=== PATIENT | female | born 1975 | race Hispanic/Latino ===

== ENCOUNTER 2017-09-18 09:39 | Emergency (ER) | payer BC ==
[2017-09-18 10:21] LABS: Absolute Lymphocytes (CBC) 1.4 K/uL (0.7-4.9); Absolute Monocytes 0.6 K/uL (0.1-1.3); Absolute Neutrophil 5.3 K/uL (1.8-8.0); Basophils % 0.9 % (0-1.3); Eosinophils % 2.1 % (0-4.4); Hematocrit 47.3 % (36.0-45.0); Lymphocytes % 18.7 % (15.3-44.8); MCH 30.2 pg (27.0-35.0); MCV 88.8 fL (80-100); MPV 9.3 fL (7.6-11.3); RBC Red Blood Cell Count 5.33 M/uL (3.86-4.86)
[2017-09-18 10:37] LABS: Urine Blood 3+ (NEG); Urine Glucose NEGATIVE (NEG); Urine Protein 1+ (NEG); Urine Specific Gravity 1.005 (1.005-1.030)
[2017-09-18 10:57] LABS: ALT/SGPT 23 U/L (12-78); AST/SGOT 20 U/L (15-37); Albumin 3.5 g/dL (3.4-5.0); Alkaline Phosphatase 86 U/L (45-117); BUN Blood Urea Nitrogen 9 mg/dL (7-18); Bicarbonate 27 mmol/L (21-32); Bilirubin Direct 0.1 mg/dL (0-0.2); Bilirubin Total 0.5 mg/dL (0.2-1.0); Glucose Level 88 mg/dL (74-106); Lipase 135 U/L (73-393); Potassium 3.3 mmol/L (3.5-5.1); Protein, Total 7.7 g/dL (6.4-8.2); Sodium Level 139 mmol/L (136-145)
--- NOTE | 2017-09-18 11:26 | RAD REPORT ---
EXAM DESCRIPTION: CT - Abdomen Pelvis W Contrast - 09/18/2017 11:08 am CLINICAL HISTORY: Abdominal pain for 2 days, history of diverticulosis, history of remote cholecyste ctomy COMPARISON: CT imaging July 2016 TECHNIQUE: Biphasic, helical CT imaging of the abdomen and pelvis was performed following 100 ml non -ionic IV contrast. No oral contrast was given. All CT scans are performed using dose optimization technique as appropriate and may include automated exposure control or mA/KV adjustment according to patient size. FINDINGS: No suspicious findings in the lung bases. The liver, spleen, and pancreas show no suspicious findings. Cholecystectomy clips are present. No bi liary tree dilatation. Symmetric renal function is seen with no hydronephrosis or suspicious renal mass. No suspicious renal parenchymal process. 17 millimeter right renal cyst is present. Partially filled urinary bladder chris ws no suspicious finding. Uterine or ovarian significant finding. No gastric dilatation or gastric wall thickening. No acute small bowel abnormality. Appendix is jacki l. From cecum through splenic flexure no significant colon finding. Minimal diverticulosis of the sig moid and descending colon. Beckman of the rectum are mildly prominent. A discrete mass is not identifia ble. Correlation is needed for any proctitis history. No abnormal lymphadenopathy in the perirectal f at. No abnormal lymphadenopathy in the examination. No free air, pneumatosis or free fluid. No hernia, mass or bulky lymphadenopathy. No adrenal abnorm ality. No suspicious bony findings. IMPRESSION: No appendicitis, abscess or surgically emergent finding. Beckman of the rectum are slightly thickened and edematous. This is a subtle finding but could indicate proctitis and needs correlation with exam findings. Minimal sigmoid and descending colon diverticulosis without diverticulitis findings. Cholecystectomy change with no pancreatic or biliary tree abnormality.
[2017-09-18 12:02] LABS: Urine Bacteria <20 /HPF (<20); Urine RBC >50 /HPF (NONE SEEN)
[2017-09-18 12:03] LABS: Urine Culture Reflex Order REFLEXED
--- NOTE | 2017-09-18 12:17 | EDPHYS ---
Physician Documentation [facility] Name: Roxi Randhawa Age: 41 yrs Sex: Female : 1975 Arrival Date: 09/18/2017 Time: 09:41 Bed 18 Private MD: out of town, doctor ED Physician Les Duran HPI: 09/18 10:36 This 41 yrs old Female presents to ER via Ambulatory with complaints of jr8 Abdominal Pain. 10:36 The patient presents with abdominal pain in the lower abdomen. Onset: The jr8 symptoms/episode began/occurred acutely, yesterday. The symptoms do not radiate. Associated signs and symptoms: none. The symptoms are described as stabbing. Modifying factors: The symptoms are alleviated by nothing, the symptoms are aggravated by nothing. Severity of pain: At its worst the pain was moderate in the emergency department the pain has improved mildly. The patient has experienced a previous episode. The patient has not recently seen a physician. History of diverticulitis. Started with similar pains that worsened yesterday and today. Denies urinary complaints, n/v/d, or fevers . 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 - Social history:: Smoking status: Patient/guardian denies using tobacco. - Ebola Screening: : Patient negative for fever greater than or equal to 101.5 degrees Fahrenheit, and additional compatible Ebola Virus Disease symptoms Patient denies exposure to infectious person Patient denies travel to an Ebola-affected area in the 21 days before illness onset No symptoms or risks identified at this time. ROS: 10:36 Eyes: Negative for injury, pain, redness, and discharge, ENT: Negative for injury, jr8 pain, and discharge, Neck: Negative for injury, pain, and swelling, Cardiovascular: Negative for chest pain, palpitations, and edema, Respiratory: Negative for shortness of breath, cough, wheezing, and pleuritic chest pain, Back: Negative for injury and pain, MS/Extremity: Negative for injury and deformity, Skin: Negative for injury, rash, and discoloration, Neuro: Negative for headache, weakness, numbness, tingling, and seizure. 10:36 Abdomen/GI: Positive for abdominal pain, Negative for nausea, vomiting, and diarrhea, abdominal distension, anorexia, dysphagia, hematemesis, black/tarry stool, rectal pain, rectal bleeding, bowel incontinence, flatulence. Exam: 10:36 Cardiovascular: Regular rate and rhythm with a normal S1 and S2. No gallops, murmurs, jr8 or rubs. Normal PMI, no JVD. No pulse deficits. Respiratory: Lungs have equal breath sounds bilaterally, clear to auscultation and percussion. No rales, rhonchi or wheezes noted. No increased work of breathing, no retractions or nasal flaring. Back: No spinal tenderness. No costovertebral tenderness. Full range of motion. Skin: Warm, dry with normal turgor. Normal color with no rashes, no lesions, and no evidence of cellulitis. MS/ Extremity: Pulses equal, no cyanosis. Neurovascular intact. Full, normal range of motion. Neuro: Awake and alert, GCS 15, oriented to person, place, time, and situation. Cranial nerves II-XII grossly intact. Motor strength 5/5 in all extremities. Sensory grossly intact. Cerebellar exam normal. Normal gait. 10:36 Abdomen/GI: Inspection: abdomen appears normal, Bowel sounds: active, all quadrants, Palpation: soft, in all quadrants, mild abdominal tenderness, in the suprapubic area, mid lower abdomen , mass, is not appreciated, rebound tenderness, is not appreciated, voluntary guarding, is not appreciated, involuntary guarding, is not appreciated, no appreciated organomegaly, Indicators: McBurney's point is not tender, Leonard's sign is negative, Rovsing's sign is negative, Liver: no appreciated palpable abnormalities, tenderness. 12:15 Abdomen/GI: Rectal exam: rectal tone normal, Stool: normal, brown, hemorrhoid(s), jr8 external, without bleeding, without inflammation, without thrombosis, without pain, mass, is not appreciated, swelling, is not appreciated, tenderness, that is mild, the exam is chaperoned by the nurse. Vital Signs: 09:59 BP 150 / 88; Pulse 103; Resp 20; Temp 98.2(O); Pulse Ox 100% on R/A; Pain 5/10; ed1 11:15 BP 129 / 69; Pulse 67; Resp 16; Pulse Ox 100% on R/A; Pain 0/10; ed1 12:02 BP 128 / 70; Pulse 63; Resp 18; Pulse Ox 100% on R/A; Pain 0/10; ed1 MDM: 10:09 Patient medically screened. [facility] 12:15 Data reviewed: vital signs, nurses notes, lab test result(s), radiologic studies, CT jr8 scan, and as a result, I will discharge patient. Data interpreted: Pulse oximetry: on room air is 100 %. Interpretation: normal. 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 09/18 09:56 Order name: Basic Metabolic Panel; Complete Time: 10:58 09/18 09:56 Order name: CBC with Diff; Complete Time: 10:26 [facility] 09/18 09:56 Order name: Creatinine for Radiology; Complete Time: 10:35 09/18 09:56 Order name: Hepatic Function; Complete Time: 10:58 09/18 09:56 Order name: Lipase; Complete Time: 10:58 [facility] 09/18 10:09 Order name: Test, Serum; Complete Time: 10:46 [facility] 09/18 09:56 Order name: IV Saline Lock; Complete Time: 10:11 09/18 09:56 Order name: Labs collected and sent; Complete Time: 10:11 [facility] 09/18 10:10 Order name: Urine Dipstick--Ancillary (enter results); Complete Time: 10:46 09/18 10:36 Order name: CT Abd/Pelvis - W/Contrast; Complete Time: 11:28 09/18 11:29 Order name: Urine Microscopic Only; Complete Time: 12:15 [facility] 09/18 12:04 Order name: Urine Culture [facility] 09/18 09:56 Order name: Urine Dipstick-Ancillary (obtain specimen); Complete Time: 10:11 jr8 Administered Medications: No medications were administered Disposition: 15:34 Co-signature as Attending Physician, Les Duran MD I agree with the assessment and kdr plan of care. Disposition: 09/18/17 12:16 Discharged to Home. Impression: Proctitis. - Condition is Stable. - Discharge Instructions: Proctitis. - Prescriptions for Cipro 500 mg Oral Tablet - take 1 tablet by ORAL route every 12 hours for 10 days; 20 tablet. Flagyl 500 mg Oral Tablet - take 1 tablet by ORAL route every 6 hours for 10 days; 40 tablet. Tylenol- Codeine #3 300-30 mg Oral Tablet - take 2 tablets by ORAL route every 6 hours As needed; 20 tablet. - Medication Reconciliation Form, Thank You Letter, Antibiotic Education, Prescription Opioid Use form. - Follow up: Private Physician; When: 1 week; Reason: Recheck today's complaints, Continuance of care, Re-evaluation by your physician. - Problem is new. - Symptoms have improved. Signatures: Dispatcher [employer] [facility] Sepideh Lockhart RN RN aj1 Les Duran MD MD [facility] Gracy Alberto, MARKETING CAMPAIGN ANALYST MARKETING CAMPAIGN ANALYST ed1 Gil Porter PA PA jr8 Corrections: (The following items were deleted from the chart) 10:11 09:56 Urine Test ordered. jr8 ed1 10:20 10:10 TEST, SERUM+SC.LAB.BRZ ordered. [facility] 12:59 12:16 09/18/2017 12:16 Discharged to Home. Impression: Proctitis. Condition is Stable. aj1 Forms are Medication Reconciliation Form, Thank You Letter, Antibiotic Education, Prescription Opioid Use. Follow up: Private Physician; When: 1 week; Reason: Recheck today's complaints, Continuance of care, Re-evaluation by your physician. Problem is new. Symptoms have improved. jr8
--- NOTE | 2017-09-18 12:17 | ER ---
Nurse's Notes [facility] Name: Roxi Randhawa Age: 41 yrs Sex: Female : 1975 Arrival Date: 09/18/2017 Time: 09:41 Bed 18 Private MD: out of town, doctor Diagnosis: Proctitis Presentation: 09/18 09:54 Presenting complaint: Patient states: I have had abdominal pain for two days. Feels ed1 like when I had diverticulitis last time. Transition of care: patient was not received from another setting of care. Onset of symptoms was September 17, 2017. Risk Assessment: Do you want to hurt yourself or someone else? Patient reports no desire to harm self or others. Initial Sepsis Screen: Does the patient meet any 2 criteria? No. Patient's initial sepsis screen is negative. Does the patient have a suspected source of infection? No. Patient's initial sepsis screen is negative. Care prior to arrival: None. 09:54 Method Of Arrival: Ambulatory ed1 09:54 Acuity: RONDA 3 ss Triage Assessment: 09:59 General: Appears in no apparent distress. Behavior is calm, cooperative. Pain: ed1 Complains of pain in suprapubic area Pain does not radiate. Pain currently is 5 out of 10 on a pain scale. Quality of pain is described as crampy, Pain began 1 day ago. Is continuous. GI: Abdomen is non-distended, Bowel sounds present X 4 quads. Abd is soft X 4 quads Abdomen is tender to palpation in suprapubic area Patient currently denies diarrhea, nausea, vomiting. 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 - Social history:: Smoking status: Patient/guardian denies using tobacco. - Ebola Screening: : Patient negative for fever greater than or equal to 101.5 degrees Fahrenheit, and additional compatible Ebola Virus Disease symptoms Patient denies exposure to infectious person Patient denies travel to an Ebola-affected area in the 21 days before illness onset No symptoms or risks identified at this time. Screenin:06 Abuse screen: Denies threats or abuse. Denies injuries from another. Nutritional ed1 screening: No deficits noted. Tuberculosis screening: No symptoms or risk factors identified. Fall Risk None identified. Assessment: 10:06 General: Appears uncomfortable, Behavior is calm, cooperative. Pain: Complains of pain ed1 in abdomen Pain does not radiate. Pain currently is 5 out of 10 on a pain scale. Quality of pain is described as crampy, Pain began 1 day ago. Is continuous. Neuro: Level of Consciousness is awake, alert, obeys commands, Oriented to person, place, time, situation. Cardiovascular: Denies chest pain, Heart tones S1 S2 present. Respiratory: Airway is patent Respiratory effort is even, unlabored, Respiratory pattern is regular, symmetrical, Denies cough, shortness of breath. GI: Abdomen is non-distended, Bowel sounds present X 4 quads. Abd is soft X 4 quads Abdomen is tender to palpation in suprapubic area Reports lower abdominal pain, cramping, Patient currently denies diarrhea, nausea, vomiting. : No signs and/or symptoms were reported regarding the genitourinary system. EENT: No signs and/or symptoms were reported regarding the EENT system. Derm: Skin is pink, warm \T\ dry. Musculoskeletal: Circulation, motion, and sensation intact. Range of motion: intact in all extremities. 10:10 General: The previous assessment is accurate. Call light remains within reach. . ss 11:15 Reassessment: Patient appears in no apparent distress at this time. Patient and/or ed1 family updated on plan of care and expected duration. Pain level reassessed. Patient is alert, oriented x 3, equal unlabored respirations, skin warm/dry/pink. Pt reports that pain comes and goes Patient denies pain at this time. 12:02 Reassessment: Patient appears in no apparent distress at this time. No changes from ed1 previously documented assessment. Patient and/or family updated on plan of care and expected duration. Pain level reassessed. Patient is alert, oriented x 3, equal unlabored respirations, skin warm/dry/pink. 12:58 Reassessment: Patient appears in no apparent distress at this time. Patient and/or aj1 family updated on plan of care and expected duration. Pain level reassessed. Patient is alert, oriented x 3, equal unlabored respirations, skin warm/dry/pink. Patient states feeling better. Patient states symptoms have improved. Vital Signs: 09:59 BP 150 / 88; Pulse 103; Resp 20; Temp 98.2(O); Pulse Ox 100% on R/A; Pain 5/10; ed1 11:15 BP 129 / 69; Pulse 67; Resp 16; Pulse Ox 100% on R/A; Pain 0/10; ed1 12:02 BP 128 / 70; Pulse 63; Resp 18; Pulse Ox 100% on R/A; Pain 0/10; ed1 ED Course: 09:41 Patient arrived in ED. mr 09:42 out of town, doctor is Private Physician. mr 09:54 Gracy Alberto LVN is Primary Nurse. ed1 09:56 Gil Porter PA is PHCP. jr8 09:56 Les Duran MD is Attending Physician. jr8 09:58 Triage completed. ss 09:59 Arm band placed on left wrist. ed1 10:06 Patient has correct armband on for positive identification. Placed in gown. Bed in low ed1 position. Call light in reach. Side rails up X 1. Pulse ox on. NIBP on. 10:13 Urine collected: clean catch specimen, blood tinged. 5 10:15 Urine Dipstick--Ancillary (enter results) Sent. 5 10:15 Test, Serum Sent. 5 11:07 CT completed. Patient tolerated procedure well. Patient moved to CT via wheelchair. vr Patient moved back from CT. 11:09 CT Abd/Pelvis - W/Contrast In Process Unspecified. EDMS 11:39 Urine Microscopic Only Sent. 5 12:02 Served as a mass spec during rectal exam. ed1 12:58 IV discontinued, intact, bleeding controlled, No redness/swelling at site. Pressure aj1 dressing applied. Administered Medications: No medications were administered Outcome: 12:16 Discharge ordered by . jr8 12:58 Discharged to home ambulatory. aj1 12:58 Condition: good 12:58 Discharge instructions given to patient, Instructed on discharge instructions, follow up and referral plans. medication usage, Demonstrated understanding of instructions, follow-up care, medications, Prescriptions given X 3. 12:59 Patient left the ED. aj1 Signatures: Dispatcher [employer] EDSepideh Dejesus RN RN aj1 Silva Sharma Shelby, RN RN Gracy Chang LVN LVN ed1 Becky Campbell Josh, PA PA jr8 Martinez, Maria [facility] Corrections: (The following items were deleted from the chart) 10:20 10:15 TEST, SERUM+SC.LAB.BRZ drawn and sent. [address]
== END 2017-09-18 12:59 | disposition home or self-care (01) ==
LOC: ER 09:39
DX: K62.89 Other specified diseases of anus and rectum (principal)
CPT/HCPCS: 36415; 74177; 80048; 80076; 81003; 81015; 83690; 84703; 85025; 87086; 87088; 99284; Q9967

== ENCOUNTER 2019-03-15 09:37 | Emergency (ER) | payer BC ==
--- OUTSIDE RECORDS SUMMARY | 2019-03-15 09:42 | XMS REPORT ---
:1975 [facility] Address [address] [place] [address] [address] [place] [address] Care Team Providers Name Role Phone Unavailable Unavailable Unavailable Problems This patient has no known problems. Allergies, Adverse Reactions, Alerts This patient has no known allergies or adverse reactions. Medications This patient has no known medications.
[2019-03-15 10:35] LABS: Absolute Lymphocytes (CBC) 0.9 K/uL (0.7-4.9); Basophils % 0.4 % (0-1.3); Hematocrit 43.8 % (36.0-45.0); Lymphocytes % 10.6 % (15.3-44.8); MPV 9.6 fL (7.6-11.3); RBC Red Blood Cell Count 4.94 M/uL (3.86-4.86)
[2019-03-15] MEDS ORDERED: NA CHLORIDE 0.9% 1,000 ML ONE (10:38)
[2019-03-15 10:49] LABS: BUN Blood Urea Nitrogen 8 mg/dL (7-18); Bicarbonate 27 mmol/L (21-32); Glucose Level 87 mg/dL (74-106); Potassium 3.6 mmol/L (3.5-5.1); Sodium Level 141 mmol/L (136-145)
[2019-03-15 10:53] LABS: Urine Blood 2+ (NEG); Urine Glucose NEGATIVE (NEG); Urine Protein 1+ (NEG); Urine Specific Gravity 1.025 (1.005-1.030); Urine pH 5.5 (5.0-7.0)
--- NOTE | 2019-03-15 11:27 | RAD REPORT ---
EXAM DESCRIPTION: CT - Abdomen Pelvis W Contrast - 03/15/2019 11:15 am CLINICAL HISTORY: Abdominal pain COMPARISON: 2017 TECHNIQUE: Computed axial tomography of the abdomen pelvis was obtained. 100 cc Isovue-300 was admin istered intravenously. Oral contrast was not requested which limits evaluation of bowel. All CT scans are performed using dose optimization technique as appropriate and may include automated exposure control or mA/KV adjustment according to patient size. FINDINGS: The liver, spleen, pancreas, adrenal and kidneys appear unremarkable. Diverticulosis. Mild to moderate stranding adjacent to the distal descending colon. No extraluminal a ir. No abscess Normal appendix Large osteophytes L5-S1 compress the left nerve root of S1 IMPRESSION: Mild to moderate diverticulitis
--- NOTE | 2019-03-15 11:35 | ER ---
Nurse's Notes [facility] Name: Roxi Randhawa Age: 43 yrs Sex: Female : 1975 Arrival Date: 03/15/2019 Time: 09:38 Bed 16 Private MD: Diagnosis: Diverticulitis of intestine, part unspecified, without perforation or abscess without bleeding Presentation: 03/15 10:10 Presenting complaint: Patient states: lower abd pain x 2-3 days. Pt believes it is ss diverticulitis as is feels similar to her last episode. Transition of care: patient was not received from another setting of care. Onset of symptoms was March 13, 2019. Risk Assessment: Do you want to hurt yourself or someone else? Patient reports no desire to harm self or others. Initial Sepsis Screen: Does the patient meet any 2 criteria? Does the patient have a suspected source of infection? No. Patient's initial sepsis screen is negative. Care prior to arrival: None. 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 - Social history:: Smoking status: Patient/guardian denies using tobacco. - Ebola Screening: : Patient denies exposure to infectious person Patient denies travel to an Ebola-affected area in the 21 days before illness onset. Screenin:31 Abuse screen: Denies threats or abuse. Denies injuries from another. Nutritional ca1 screening: No deficits noted. Tuberculosis screening: No symptoms or risk factors identified. Fall Risk IV access (20 points). Assessment: 10:31 General: Appears in no apparent distress. comfortable, Behavior is calm, cooperative, ca1 appropriate for age. Pain: Complains of pain in right lower quadrant and left lower quadrant Pain does not radiate. Pain currently is 5 out of 10 on a pain scale. Quality of pain is described as sharp, Pain began 2-3 days ago. Is continuous. Neuro: Level of Consciousness is awake, alert, obeys commands, Oriented to person, place, time, situation, Appropriate for age. Cardiovascular: Heart tones S1 S2 present Capillary refill < 3 seconds Patient's skin is warm and dry. Respiratory: Airway is patent Respiratory effort is even, unlabored, Respiratory pattern is regular, symmetrical, Breath sounds are clear bilaterally. GI: Abdomen is round non-distended, Bowel sounds present X 4 quads. Abd is soft X 4 quads Abdomen is tender to palpation in right lower quadrant and left lower quadrant Reports nausea. : No deficits noted. No signs and/or symptoms were reported regarding the genitourinary system. : Urine is clear. EENT: No deficits noted. No signs and/or symptoms were reported regarding the EENT system. Derm: Skin is intact, is healthy with good turgor, Skin is pink, warm \T\ dry. Musculoskeletal: Circulation, motion, and sensation intact. Capillary refill < 3 seconds. 11:30 Reassessment: Patient appears in no apparent distress at this time. Patient and/or ca1 family updated on plan of care and expected duration. Pain level reassessed. Patient is alert, oriented x 3, equal unlabored respirations, skin warm/dry/pink. 12:11 Reassessment: Patient appears in no apparent distress at this time. Patient is alert, ca1 oriented x 3, equal unlabored respirations, skin warm/dry/pink. Patient states feeling better. Vital Signs: 10:12 BP 129 / 90; Pulse 65; Resp 15; Temp 97.9(TE); Pulse Ox 100% on R/A; Weight 84.37 kg; ss Height 5 ft. 4 in. (162.56 cm); Pain 5/10; 11:30 BP 118 / 70; Pulse 76; Resp 18 S; Pulse Ox 100% on R/A; ca1 10:12 Body Mass Index 31.93 (84.37 kg, 162.56 cm) ss ED Course: 09:38 Patient arrived in ED. ds1 09:59 Jania Calles RN is Primary Nurse. ca1 10:00 Terese Lauren FNP-C is PHCP. kb 10:00 Dedrick Barry MD is Attending Physician. kb 10:11 Triage completed. ss 10:12 Arm band placed on right wrist. ss 10:27 No provider procedures requiring assistance completed. Inserted saline lock: 22 gauge ca1 in right antecubital area, using aseptic technique. Blood collected. 10:31 Patient has correct armband on for positive identification. Bed in low position. Call ca1 light in reach. Side rails up X 1. Pulse ox on. NIBP on. Warm blanket given. 11:15 CT Abd/Pelvis - IV Contrast Only In Process Unspecified. EDMS 12:11 IV discontinued, intact, bleeding controlled, No redness/swelling at site. Pressure ca1 dressing applied. Administered Medications: 10:30 Drug: NS 0.9% 1000 ml Route: IV; Rate: 1000 ml; Site: right antecubital; ca1 11:36 Follow up: Response: No adverse reaction; IV Status: Completed infusion; IV Intake: ca1 1000ml 11:38 Drug: Zofran 4 mg Route: IVP; Site: right antecubital; ca1 11:44 Follow up: Response: Medication administered at discharge. ca1 11:39 Drug: Cipro 500 mg Route: PO; ca1 11:43 Follow up: Response: Medication administered at discharge. ca1 11:39 Drug: Flagyl 500 mg Route: PO; ca1 11:44 Follow up: Response: Medication administered at discharge. ca1 12:02 Drug: morphine 4 mg {Note: RASS - 0.} Route: IVP; Site: right antecubital; ca1 12:03 Follow up: Response: Medication administered at discharge. ca1 Intake: 11:36 IV: 1000ml; Total: 1000ml. ca1 Outcome: 11:35 Discharge ordered by . kb 12:11 Discharged to home ambulatory, with family. ca1 12:11 Condition: stable 12:11 Discharge instructions given to patient, Instructed on discharge instructions, follow up and referral plans. no drinking with medication, no driving heavy equipment, medication usage, Demonstrated understanding of instructions, follow-up care, medications, Prescriptions given X 3. 12:12 Patient left the ED. ca1 Signatures: Dispatcher [employer] EDMS Terese Lauren, Jenae Simms ds1 Stella Jennings RN RN ss Jania Calles RN RN ca1
--- NOTE | 2019-03-15 11:36 | EDPHYS ---
Physician Documentation [facility] Name: Roxi Randhawa Age: 43 yrs Sex: Female : 1975 Arrival Date: 03/15/2019 Time: 09:38 Bed 16 Private MD: ED Physician Dedrick Barry HPI: 03/15 10:59 This 43 yrs old Female presents to ER via Ambulatory with complaints of kb Abdominal Pain. 10:59 The patient presents with abdominal pain in the lower abdomen. Onset: The kb symptoms/episode began/occurred 3 day(s) ago. The symptoms do not radiate. Associated signs and symptoms: Pertinent positives: nausea. The symptoms are described as constant. Modifying factors: The symptoms are alleviated by nothing, the symptoms are aggravated by nothing. Severity of pain: At its worst the pain was moderate in the emergency department the pain is unchanged. The patient has not experienced similar symptoms in the past. The patient has not recently seen a physician. Pt reports she has diverticulitis. States it started 3 days ago, but she was hopping it would just go away on its own. CAP SEWER: 10:34 LMP 03/01/2019 ca1 Historical: - Allergies: 10:12 No Known Allergies; ss - PMHx: 10:12 Diverticulitis; diverticulosis; ss - PSHx: 10:12 Cholecystectomy; ss - Immunization history:: Adult Immunizations up to date. - Social history:: Smoking status: Patient/guardian denies using tobacco. - Ebola Screening: : Patient denies exposure to infectious person Patient denies travel to an Ebola-affected area in the 21 days before illness onset. ROS: 10:59 Constitutional: Negative for fever, chills, and weight loss, ENT: Negative for injury, kb pain, and discharge, Neck: Negative for injury, pain, and swelling, Cardiovascular: Negative for chest pain, palpitations, and edema, Respiratory: Negative for shortness of breath, cough, wheezing, and pleuritic chest pain, Back: Negative for injury and pain, MS/Extremity: Negative for injury and deformity, Skin: Negative for injury, rash, and discoloration, Neuro: Negative for headache, weakness, numbness, tingling, and seizure. 10:59 Abdomen/GI: Positive for abdominal pain, nausea. Exam: 10:58 Constitutional: This is a well developed, well nourished patient who is awake, alert, kb and in no acute distress. Head/Face: Normocephalic, atraumatic. ENT: Nares patent. No nasal discharge, no septal abnormalities noted. Tympanic membranes are normal and external auditory canals are clear. Oropharynx with no redness, swelling, or masses, exudates, or evidence of obstruction, uvula midline. Mucous membranes moist. Neck: Trachea midline, no thyromegaly or masses palpated, and no cervical lymphadenopathy. Supple, full range of motion without nuchal rigidity, or vertebral point tenderness. No Meningismus. Chest/axilla: Normal chest wall appearance and motion. Nontender with no deformity. No lesions are appreciated. Cardiovascular: Regular rate and rhythm with a normal S1 and S2. No gallops, murmurs, or rubs. Normal PMI, no JVD. No pulse deficits. Respiratory: Lungs have equal breath sounds bilaterally, clear to auscultation and percussion. No rales, rhonchi or wheezes noted. No increased work of breathing, no retractions or nasal flaring. Skin: Warm, dry with normal turgor. Normal color with no rashes, no lesions, and no evidence of cellulitis. MS/ Extremity: Pulses equal, no cyanosis. Neurovascular intact. Full, normal range of motion. Neuro: Awake and alert, GCS 15, oriented to person, place, time, and situation. Cranial nerves II-XII grossly intact. Motor strength 5/5 in all extremities. Sensory grossly intact. Cerebellar exam normal. Normal gait. 10:58 Abdomen/GI: Inspection: abdomen appears normal, Bowel sounds: normal, in all quadrants, Palpation: soft, in all quadrants, mild abdominal tenderness, in the left upper quadrant and right lower quadrant, moderate abdominal tenderness, in the left lower quadrant. Vital Signs: 10:12 BP 129 / 90; Pulse 65; Resp 15; Temp 97.9(TE); Pulse Ox 100% on R/A; Weight 84.37 kg; ss Height 5 ft. 4 in. (162.56 cm); Pain 5/10; 11:30 BP 118 / 70; Pulse 76; Resp 18 S; Pulse Ox 100% on R/A; ca1 10:12 Body Mass Index 31.93 (84.37 kg, 162.56 cm) ss MDM: 10:01 Patient medically screened. kb 10:58 Data reviewed: vital signs, nurses notes. Data interpreted: Pulse oximetry: on room air kb is 100 %. Interpretation: normal. 11:31 Counseling: I had a detailed discussion with the patient and/or guardian regarding: the kb historical points, exam findings, and any diagnostic results supporting the discharge/admit diagnosis, lab results, radiology results, the need for outpatient follow up, a family practitioner, a communications advisor, to return to the emergency department if symptoms worsen or persist or if there are any questions or concerns that arise at home. 03/15 10:14 Order name: Basic Metabolic Panel; Complete Time: 10:51 kb 03/15 10:14 Order name: CBC with Diff; Complete Time: 10:38 kb 03/15 10:14 Order name: CT Abd/Pelvis - IV Contrast Only; Complete Time: 11:30 kb 03/15 10:37 Order name: Urine Dipstick--Ancillary (enter results); Complete Time: 10:55 bd 03/15 10:37 Order name: Urine --Ancillary (enter results); Complete Time: 10:55 bd 03/15 10:14 Order name: IV Saline Lock; Complete Time: 10:31 kb 03/15 10:14 Order name: Labs collected and sent; Complete Time: 10:31 kb 03/15 10:15 Order name: Urine Dipstick-Ancillary (obtain specimen); Complete Time: 10:31 kb Administered Medications: 10:30 Drug: NS 0.9% 1000 ml Route: IV; Rate: 1000 ml; Site: right antecubital; ca1 11:36 Follow up: Response: No adverse reaction; IV Status: Completed infusion; IV Intake: ca1 1000ml 11:38 Drug: Zofran 4 mg Route: IVP; Site: right antecubital; ca1 11:44 Follow up: Response: Medication administered at discharge. ca1 11:39 Drug: Cipro 500 mg Route: PO; ca1 11:43 Follow up: Response: Medication administered at discharge. ca1 11:39 Drug: Flagyl 500 mg Route: PO; ca1 11:44 Follow up: Response: Medication administered at discharge. ca1 12:02 Drug: morphine 4 mg {Note: RASS - 0.} Route: IVP; Site: right antecubital; ca1 12:03 Follow up: Response: Medication administered at discharge. ca1 Disposition: 03/16 08:01 Co-signature as Attending Physician, Dedrick Barry MD I agree with the assessment and tw4 plan of care. Disposition: 03/15/19 11:35 Discharged to Home. Impression: Diverticulitis of intestine, part unspecified, without perforation or abscess without bleeding. - Condition is Stable. - Discharge Instructions: Diverticulitis, [id number]. - Prescriptions for Flagyl 500 mg Oral Tablet - take 1 tablet by ORAL route every 8 hours for 10 days; 30 tablet. Zofran 4 mg Oral Tablet - take 1 tablet by ORAL route every 6 hours As needed; 20 tablet. Cipro 500 mg Oral Tablet - take 1 tablet by ORAL route every 12 hours for 10 days; 20 tablet. Tramadol 50 mg Oral Tablet - take 1 tablet by ORAL route every 8 hours as needed; 12 tablet. - Medication Reconciliation Form, Thank You Letter, Antibiotic Education, Prescription Opioid Use, Work release form form. - Follow up: Emergency Department; When: As needed; Reason: Worsening of condition. Follow up: Private Physician; When: 2 - 3 days; Reason: Recheck today's complaints, Continuance of care, Re-evaluation by your physician. Signatures: Dispatcher [employer] EDMS Terese Lauren, MAHESHC GEAR INSPECTOR-Stella Mulligan RN RN Dedrick Tolentino MD MD tw4 Jania darby RN RN ca1 Corrections: (The following items were deleted from the chart) 03/15 12:12 11:35 03/15/2019 11:35 Discharged to Home. Impression: Diverticulitis of intestine, ca1 part unspecified, without perforation or abscess without bleeding. Condition is Stable. Discharge Instructions: Diverticulitis, [id number]. Prescriptions for Flagyl 500 mg Oral Tablet - take 1 tablet by ORAL route every 8 hours for 10 days; 30 tablet, Zofran 4 mg Oral Tablet - take 1 tablet by ORAL route every 6 hours As needed; 20 tablet, Cipro 500 mg Oral Tablet - take 1 tablet by ORAL route every 12 hours for 10 days; 20 tablet. and Forms are Medication Reconciliation Form, Thank You Letter, Antibiotic Education, Prescription Opioid Use. Follow up: Emergency Department; When: As needed; Reason: Worsening of condition. Follow up: Private Physician; When: 2 - 3 days; Reason: Recheck today's complaints, Continuance of care, Re-evaluation by your physician. kb
[2019-03-15] MEDS ORDERED: metroNIDAZOLE 500 MG TABLET ONE (11:41)
[2019-03-15] MEDS ORDERED: ONDANSETRON 4 MG/2 ML VIAL ONE (11:42)
[2019-03-15] MEDS ORDERED: CIPROFLOXACIN HCL 500 MG TAB ONE (11:42)
[2019-03-15] MEDS ORDERED: MORPHINE 4 MG/ML SYR ONE (12:01)
[2019-03-15 12:56] VITALS: BP 118/70; TEMP 97.9; O2SAT 100
== END 2019-03-15 12:12 | disposition home or self-care (01) ==
LOC: ER 09:37
DX: K57.92 Diverticulitis of intestine, part unspecified, without perforation or abscess without bleeding (principal)
CPT/HCPCS: 96361; 85025; 80048; 36415; 81025; 81003; 74177; 96375; 96374; 99284; Q9966; J7030; J2405

== ENCOUNTER 2020-05-06 03:52 | Emergency (ER) | payer BC ==
--- OUTSIDE RECORDS SUMMARY | 2020-05-06 03:55 | XMS REPORT | Continuity of Care Document ---
:1975 Author Organization [facility] t Address [address] [place] [place] [address] Care Team Providers Name Role Phone Austen Nash MD Attending Clinician Problems This patient has no known problems. Allergies, Adverse Reactions, Alerts This patient has no known allergies or adverse reactions. Medications This patient has no known medications. Procedures This patient has no known procedures. Encounters Start End Encounter Admission Attending Care Care Encounter Source Date/Time Date/Time Type Type Clinicians Facility Department ID 2020-02-10 2020-02-10 Office NOLAN Nash [id number] 13:01:30 13:31:30 Visit Citlaly Yousif [id number] [place] [id number] [address] [facility] Results This patient has no known results.
[2020-05-06] MEDS ORDERED: ACETAMINOPHEN 500 MG TAB ONE (04:37)
[2020-05-06] MEDS ORDERED: MORPHINE 4 MG/ML SYR ONE (04:37)
[2020-05-06] MEDS ORDERED: ONDANSETRON 4 MG/2 ML VIAL ONE (04:38)
[2020-05-06] MEDS ORDERED: NA CHLORIDE 0.9% 1,000 ML ONE (04:38)
[2020-05-06 04:56] LABS: Urine Blood 1+ (NEG); Urine Glucose NEGATIVE (NEG); Urine Protein NEGATIVE (NEG)
[2020-05-06 05:03] LABS: Absolute Lymphocytes (CBC) 0.4 K/uL (0.7-4.9); Basophils % 0.2 % (0-1.3); Hematocrit 41.9 % (36.0-45.0); Lymphocytes % 4.7 % (15.3-44.8); MPV 8.9 fL (7.6-11.3); RBC Red Blood Cell Count 4.59 M/uL (3.86-4.86)
[2020-05-06 05:19] LABS: ALT/SGPT 21 U/L (12-78); AST/SGOT 18 U/L (15-37); Albumin 3.2 g/dL (3.4-5.0); Alkaline Phosphatase 89 U/L (45-117); BUN Blood Urea Nitrogen 7 mg/dL (7-18); Bicarbonate 23 mmol/L (21-32); Bilirubin Direct 0.1 mg/dL (0-0.2); Bilirubin Total 0.3 mg/dL (0.2-1.0); Glucose Level 102 mg/dL (74-106); Lipase 152 U/L (73-393); Potassium 3.6 mmol/L (3.5-5.1); Protein, Total 7.7 g/dL (6.4-8.2); Sodium Level 141 mmol/L (136-145)
[2020-05-06 05:52] LABS: Urine Bacteria 20-50 /HPF (<20)
--- NOTE | 2020-05-06 06:50 | ER ---
Nurse's Notes [facility] Name: Roxi Randhawa Age: 44 yrs Sex: Female : 1975 Arrival Date: 05/06/2020 Time: 03:54 Bed 14 Private MD: Diagnosis: Diverticulitis of large intestine without perforation or abscess without bleeding Presentation: 05/06 04:03 Chief complaint: Patient states: I have recurrent diverticulitis, the pain started on jb4 Friday, I called Dr. Choi and was prescribed Cipro and Flagyl and Tylenol for the pain. Tonight I started running a low grade fever. Coronavirus screen: Client denies travel out of the [place] in the last 14 days. chills, fever, Client presents with at least one sign or symptom that may indicate coronavirus-19. Standard/surgical mask placed on the client. Provider contacted for isolation considerations. Ebola Screen: No symptoms or risks identified at this time. Initial Sepsis Screen: Does the patient meet any 2 criteria? Temp <36.0*C (96.8*F)) or > 38.3*C (100.9*F). HR > 90 bpm. Yes Does the patient have a suspected source of infection? Yes: Acute abdominal pain If YES to both, name of provider notified: Bud White MD Risk Assessment: Do you want to hurt yourself or someone else? Patient reports no desire to harm self or others. Onset of symptoms was May 06, 2020. Transition of care: patient was not received from another setting of care. 04:03 Method Of Arrival: Ambulatory jb4 04:03 Acuity: RONDA 3 jb4 Historical: - Allergies: 04:03 No Known Allergies; jb4 - Home Meds: 04:03 Cipro Oral [Active]; Flagyl Oral [Active]; jb4 - PMHx: 04:03 Diverticulitis; diverticulosis; jb4 - PSHx: 04:03 Cholecystectomy; jb4 - Immunization history:: Adult Immunizations up to date. - Social history:: Smoking status: Patient denies any tobacco usage or history of. Patient/guardian denies using alcohol, street drugs. - Family history:: not pertinent. - Hospitalizations: : No recent hospitalization is reported. Screenin:09 Abuse screen: Denies threats or abuse. Nutritional screening: No deficits noted. jb4 Tuberculosis screening: No symptoms or risk factors identified. Fall Risk None identified. Assessment: 04:09 General: Appears in no apparent distress. comfortable, Behavior is calm, cooperative, jb4 appropriate for age. Pain: Complains of pain in left lower quadrant Pain does not radiate. Pain currently is 4 out of 10 on a pain scale. Neuro: Level of Consciousness is awake, alert, obeys commands, Oriented to person, place, time, situation. Cardiovascular: Patient's skin is warm and dry. Respiratory: Airway is patent Respiratory effort is even, unlabored, Respiratory pattern is regular, symmetrical. GI: Abdomen is round non-distended, obese, Reports lower abdominal pain. : No signs and/or symptoms were reported regarding the genitourinary system. EENT: No signs and/or symptoms were reported regarding the EENT system. Derm: Skin is intact, Skin is pink, warm \T\ dry. Musculoskeletal: Circulation, motion, and sensation intact. Range of motion: intact in all extremities. 05:47 Reassessment: Patient appears in no apparent distress at this time. Patient and/or jb4 family updated on plan of care and expected duration. Pain level reassessed. Patient is alert, oriented x 3, equal unlabored respirations, skin warm/dry/pink. Patient states feeling better. Patient states symptoms have improved. 07:02 Reassessment: Patient appears in no apparent distress at this time. Patient and/or jb4 family updated on plan of care and expected duration. Pain level reassessed. Patient is alert, oriented x 3, equal unlabored respirations, skin warm/dry/pink. Patient states feeling better. 07:48 Reassessment: Patient appears in no apparent distress at this time. Patient and/or hb family updated on plan of care and expected duration. Pain level reassessed. Patient is alert, oriented x 3, equal unlabored respirations, skin warm/dry/pink. 08:45 Reassessment: Patient appears in no apparent distress at this time. Patient and/or hb family updated on plan of care and expected duration. Pain level reassessed. Patient is alert, oriented x 3, equal unlabored respirations, skin warm/dry/pink. Vital Signs: 04:03 BP 140 / 62; Pulse 110; Resp 18; Temp 101.2(O); Pulse Ox 100% on R/A; Weight 85.28 kg jb4 (R); Height 5 ft. 4 in. (162.56 cm) (R); Pain 4/10; 05:45 BP 110 / 57; Pulse 80; Resp 16; Temp 99.5(O); Pulse Ox 97% on R/A; jb4 06:30 BP 107 / 56; Pulse 65; Resp 16; Pulse Ox 98% on R/A; jb4 07:30 BP 94 / 51; Pulse 73; Resp 15; Pulse Ox 97% on R/A; hb 08:30 BP 121 / 62; Pulse 74; Resp 16; Pulse Ox 97% on R/A; hb 04:03 Body Mass Index 32.27 (85.28 kg, 162.56 cm) jb4 ED Course: 03:54 Patient arrived in ED. cl3 03:58 Eamon Pinzon, RN is Primary Nurse. jb4 04:01 Bud White MD is Attending Physician. rn 04:03 Arm band placed on right wrist. jb4 04:07 Triage completed. jb4 04:09 Patient has correct armband on for positive identification. Bed in low position. Call jb4 light in reach. Side rails up X 1. Pulse ox on. NIBP on. 04:20 Urine collected: clean catch specimen, clear. sf 04:30 First set of blood cultures drawn. Missed attempt(s): 20 gauge in right forearm. sf 04:45 Inserted saline lock: 18 gauge in right forearm, using aseptic technique. Blood jb4 collected. 04:45 Initial lab(s) drawn, by ut, sent to lab. Second set of blood cultures drawn. jb4 05:27 CT Abd/Pelvis - IV Contrast Only Sent. sf 05:49 CT Abd/Pelvis - IV Contrast Only In Process Unspecified. EDMS 08:58 No provider procedures requiring assistance completed. IV discontinued, intact, hb bleeding controlled, No redness/swelling at site. Administered Medications: 04:50 Drug: Tylenol 1000 mg Route: PO; jb4 05:49 Follow up: Response: No adverse reaction; Marked relief of symptoms; Temperature is jb4 decreased 04:58 Drug: NS 0.9% 1000 ml Route: IV; Rate: 1000 ml; Site: right forearm; jb4 04:58 Drug: Zofran (Ondansetron) 4 mg Route: IVP; Site: right forearm; jb4 05:30 Follow up: Response: No adverse reaction jb4 05:00 Drug: morphine 4 mg Route: IVP; Site: right forearm; jb4 05:30 Follow up: Response: No adverse reaction; Marked relief of symptoms; Pain is decreased; jb4 RASS: Alert and Calm (0) 07:00 Drug: Cipro (ciprofloxacin) 400 mg Volume: 200 ml; Route: IVPB; Infused Over: 60 mins; jb4 Site: right antecubital; 07:01 Drug: Flagyl 500 mg Volume: 100 ml; Route: IVPB; Rate: 200 ml/hr; Infused Over: 30 jb4 mins; Site: right antecubital; Outcome: 06:50 Discharge ordered by . rn 08:58 Discharged to home ambulatory. 08:58 Condition: stable 08:58 Discharge instructions given to patient, Instructed on discharge instructions, follow up and referral plans. medication usage, Demonstrated understanding of instructions, follow-up care, medications. 08:58 Patient left the ED. Signatures: Dispatcher [employer] EDMS Bud White MD MD rn Baxter, Heather, RN RN Eamon Pinzon RN RN Alli Osorio3 Serg Brown, REBEKAH WELCH
--- NOTE | 2020-05-06 06:50 | EDPHYS ---
Physician Documentation [facility] Name: Roxi Randhawa Age: 44 yrs Sex: Female : 1975 Arrival Date: 05/06/2020 Time: 03:54 Bed 14 Private MD: ED Physician Bud White HPI: 05/06 04:42 This 44 yrs old Female presents to ER via Ambulatory with complaints of rn Chills, Fever, abd pain. 04:42 The patient presents with abdominal pain in the left lower quadrant. rn 04:43 Onset: The symptoms/episode began/occurred 3 day(s) ago. The symptoms do not radiate. rn Associated signs and symptoms: Pertinent positives: fever, Pertinent negatives: blood in stools, constipation, diarrhea, vomiting, vomiting blood. The symptoms are described as achy, crampy. Modifying factors: The symptoms are alleviated by nothing, the symptoms are aggravated by touching the area. Severity of pain: At its worst the pain was moderate in the emergency department the pain is unchanged. The patient has experienced similar episodes in the past. Reports several episodes of diverticulitis in past, started to have left sided abd pain a few days ago, called Dr. Choi, who called her in cipro/flagyl. Reports doing ok, no vomiting/diarrhea, but today got chills and fever, which is new to her so came in. . Historical: - Allergies: 04:03 No Known Allergies; jb4 - Home Meds: 04:03 Cipro Oral [Active]; Flagyl Oral [Active]; jb4 - PMHx: 04:03 Diverticulitis; diverticulosis; jb4 - PSHx: 04:03 Cholecystectomy; jb4 - Immunization history:: Adult Immunizations up to date. - Social history:: Smoking status: Patient denies any tobacco usage or history of. Patient/guardian denies using alcohol, street drugs. - Family history:: not pertinent. - Hospitalizations: : No recent hospitalization is reported. ROS: 04:43 Constitutional: + fever and chills Eyes: Negative for injury, pain, redness, and double corner cutter, Neck: Negative for injury, pain, and swelling, Cardiovascular: Negative for chest pain, palpitations, and edema, Respiratory: Negative for shortness of breath, cough, wheezing, and pleuritic chest pain, Abdomen/GI: + abd pain, neg for vomiting/diarrhea Back: Negative for injury and pain, MS/Extremity: Negative for injury and deformity, Skin: Negative for injury, rash, and discoloration, Neuro: Negative for headache, weakness, numbness, tingling, and seizure. 04:43 All other systems are negative. Exam: 04:43 Constitutional: This is a well developed, well nourished patient who is awake, alert, rn and in no acute distress. Head/Face: Normocephalic, atraumatic. Cardiovascular: Tachycardic, regular Respiratory: No increased work of breathing, no retractions or nasal flaring. Abdomen/GI: soft, + LLQ/LUQ tenderness, no reobund or masses Skin: Warm, dry MS/ Extremity: Pulses equal, no cyanosis. Neurovascular intact. Full, normal range of motion. Equal circumference. Neuro: Awake and alert, GCS 15 Vital Signs: 04:03 BP 140 / 62; Pulse 110; Resp 18; Temp 101.2(O); Pulse Ox 100% on R/A; Weight 85.28 kg jb4 (R); Height 5 ft. 4 in. (162.56 cm) (R); Pain 4/10; 05:45 BP 110 / 57; Pulse 80; Resp 16; Temp 99.5(O); Pulse Ox 97% on R/A; jb4 06:30 BP 107 / 56; Pulse 65; Resp 16; Pulse Ox 98% on R/A; jb4 07:30 BP 94 / 51; Pulse 73; Resp 15; Pulse Ox 97% on R/A; hb 08:30 BP 121 / 62; Pulse 74; Resp 16; Pulse Ox 97% on R/A; hb 04:03 Body Mass Index 32.27 (85.28 kg, 162.56 cm) jb4 MDM: 04:01 Patient medically screened. rn 06:48 Differential diagnosis: diverticulitis, non-specific abd pain, Ureterolithiasis, rn urinary tract infection. Data reviewed: vital signs, nurses notes, lab test result(s), radiologic studies, CT scan, and as a result, I will discharge patient. Counseling: I had a detailed discussion with the patient and/or guardian regarding: the historical points, exam findings, and any diagnostic results supporting the discharge/admit diagnosis, lab results, radiology results, the need for outpatient follow up, to return to the emergency department if symptoms worsen or persist or if there are any questions or concerns that arise at home. Special discussion: Based on the patient's Hx, exam, and Dx evaluation, there is no indication for emergent surgery or inpatient Tx. It is understood by the patient/guardian that if the Sx's persist or worsen they need to return immediately for re-evaluation. I discussed with the patient/guardian in detail that at this point there is no indication for admission to the hospital. It is understood, however, that if the symptoms persist or worsen the patient needs to return immediately for re-evaluation. ED course: CT shows diverticulitis, no perforation, will dc home and will continue her cipro/flagyl.. 05/06 04:14 Order name: Basic Metabolic Panel; Complete Time: 05:30 05/06 04:14 Order name: CBC with Diff; Complete Time: 05:30 05/06 04:14 Order name: Hepatic Function; Complete Time: 05:30 05/06 04:14 Order name: Lipase; Complete Time: 05:30 05/06 04:14 Order name: Urine Microscopic Only 05/06 04:14 Order name: Blood Culture Adult (2) 05/06 04:14 Order name: CT Abd/Pelvis - IV Contrast Only 05/06 04:14 Order name: Procalcitonin; Complete Time: 05:38 05/06 04:28 Order name: Lactate 4 05/06 04:46 Order name: Urine Dipstick--Ancillary (enter results); Complete Time: 05:30 [facility] 05/06 04:46 Order name: Urine --Ancillary (enter results) [facility] 05/06 05:53 Order name: Urine Culture [facility] 05/06 04:14 Order name: IV Saline Lock; Complete Time: 04:53 05/06 04:14 Order name: Labs collected and sent; Complete Time: 04:53 05/06 04:14 Order name: Urine Test (obtain specimen); Complete Time: 04:41 05/06 04:14 Order name: Urine Dipstick-Ancillary (obtain specimen); Complete Time: 04:41 rn Administered Medications: 04:50 Drug: Tylenol 1000 mg Route: PO; jb4 05:49 Follow up: Response: No adverse reaction; Marked relief of symptoms; Temperature is jb4 decreased 04:58 Drug: NS 0.9% 1000 ml Route: IV; Rate: 1000 ml; Site: right forearm; jb4 04:58 Drug: Zofran (Ondansetron) 4 mg Route: IVP; Site: right forearm; jb4 05:30 Follow up: Response: No adverse reaction jb4 05:00 Drug: morphine 4 mg Route: IVP; Site: right forearm; jb4 05:30 Follow up: Response: No adverse reaction; Marked relief of symptoms; Pain is decreased; jb4 RASS: Alert and Calm (0) 07:00 Drug: Cipro (ciprofloxacin) 400 mg Volume: 200 ml; Route: IVPB; Infused Over: 60 mins; jb4 Site: right antecubital; 07:01 Drug: Flagyl 500 mg Volume: 100 ml; Route: IVPB; Rate: 200 ml/hr; Infused Over: 30 jb4 mins; Site: right antecubital; Disposition: 05/06/20 06:50 Discharged to Home. Impression: Diverticulitis of large intestine without perforation or abscess without bleeding. - Condition is Stable. - Discharge Instructions: Diverticulitis. - Medication Reconciliation Form, Thank You Letter, Antibiotic Education, Prescription Opioid Use form. - Follow up: Private Physician; When: As needed; Reason: Recheck today's complaints, Re-evaluation by your physician. - Problem is new. - Symptoms have improved. Signatures: Dispatcher [employer] EDBud Prasad MD MD rn Baxter, Heather, RN RN hb Bryson, James, RN RN jb4 Corrections: (The following items were deleted from the chart) 08:58 06:50 05/06/2020 06:50 Discharged to Home. Impression: Diverticulitis of large hb intestine without perforation or abscess without bleeding. Condition is Stable. Forms are Medication Reconciliation Form, Thank You Letter, Antibiotic Education, Prescription Opioid Use. Follow up: Private Physician; When: As needed; Reason: Recheck today's complaints, Re-evaluation by your physician. Problem is new. Symptoms have improved. rn
[2020-05-06] MEDS ORDERED: METRONIDAZOLE 500mg IVPB 500 MG/100 ML BAG IV ONE (07:05)
[2020-05-06] MEDS ORDERED: CIPROFLOXACIN 400mg IV 400 MG/200 ML BAG IV ONE (07:05)
[2020-05-06 09:04] VITALS: TEMP 99.5
[2020-05-06 09:07] VITALS: O2SAT 97
[2020-05-06 09:08] VITALS: BP 121/62
--- NOTE | 2020-05-06 19:03 | RAD REPORT ---
EXAM DESCRIPTION: CT Abdomen and Pelvis With Intravenous Contrast CLINICAL HISTORY: The patient is 44 years old and is Female; ABD PAIN TECHNIQUE: Axial computed tomography images of the abdomen and pelvis with intravenous contrast. S agittal and coronal reformatted images were created and reviewed. This CT exam was performed using one or more of the following dose reduction techniques: automated exposure control, adjustment of t he mA and/or kV according to patient size, and/or use of iterative reconstruction technique. COMPARISON: CT abdomen and pelvis with contrast December 10, 2019. FINDINGS: Lung bases: Unremarkable. No mass. No consolidation. ABDOMEN: Liver: Unremarkable. No mass. Gallbladder and bile ducts: Cholecystectomy without biliary dilatation. Pancreas: No findings to suggest acute pancreatitis. No mass visualized. No ductal dilation. Spleen: Unremarkable. No splenomegaly. Adrenals: Unremarkable. No mass. Kidneys and ureters: Unremarkable. No solid mass. No hydronephrosis. Stomach and bowel: Inflamed diverticulum in the distal left colon with adjacent fat stranding. Colonic diverticulosis. No small bowel dilatation or obstruction. No gastric wall thickening. PELVIS: Appendix: The visualized appendix is normal. No pericecal inflammation to suggest acute appendici tis. Bladder: Unremarkable. No mass. Reproductive: Unremarkable as visualized. ABDOMEN and PELVIS: Intraperitoneal space: No free air or abscess. No significant fluid collection. Bones/joints: L5-S1 disc osteophyte complex with mild to moderate central canal stenosis and left foraminal narrowing. No acute fracture. No dislocation. Soft tissues: Unremarkable. Vasculature: Unremarkable. No abdominal aortic aneurysm. Lymph nodes: No pathologically enlarged lymph nodes. IMPRESSION: 1. Distal left colon diverticulitis. No free air or abscess. 2. Cholecystectomy without biliary dilatation. 3. Additional non-emergent findings as above. Electronically signed by: Maria D Edwards MD 05/06/2020 5:59 AM [facility] Due to temporary technical issues with the PACS/Fluency reporting system, reports are being signed by the in house radiologists without review as a courtesy to insure prompt reporting. The interpreting radiologist is fully responsible for the content of the report.
== END 2020-05-06 08:58 | disposition home or self-care (01) ==
LOC: ER 03:52
DX: K57.32 Diverticulitis of large intestine without perforation or abscess without bleeding (principal)
CPT/HCPCS: 87040 ×2; 87088; 85025; 87086; 80048; 36415; 81025; 80076; 83605; 83690; 84145; 74177; Q9967; J7030; J2405; J0744; 81003; 81015; 99284